=== PATIENT | female | born 1935 | race Caucasian/White ===

== ENCOUNTER 2016-11-01 11:54 | Inpatient (IN) | payer MEDICARE, OTHER ==
--- NOTE | ~2016-11-01 | EHP ---
ER History and Physical [address] [address] NAME: EMELINA MURPHY : 35 STATUS : DIS IN PAT#: [id number] AGE: 81 ADM/REG DATE : 11/01/16 MR#: [id number] REPORT SERV DATE: 11/12/16 DICTATED BY: MARE AHN DATE: 11/12/16 REPORT STATUS : Draft TRANSCRIBED BY: MARYELLEN DATE: 11/12/16 ADDENDUM: CHIEF COMPLAINT: Fever. HISTORY: Ms. Murphy is an 81-year-old female, who presented with fever, cough, sore throat, and weakness and fatigue for two weeks. She has some associated nausea and vomiting as well as some dysuria and has been complaining of ongoing fever off and on for two weeks now. She is . She has a history of smoking. No alcohol use. She is retired, history of breast cancer. PAST MEDICAL HISTORY: As above. PHYSICAL EXAMINATION: GENERAL: No acute distress. HEENT: Eyes, extraocular muscles are intact. Dry mucous membranes. Oropharynx clear. RESPIRATORY: No increased work of breathing. LUNGS: Clear to auscultation bilaterally. ABDOMEN: Soft, nontender, positive bowel sounds. EXTREMITIES: No cyanosis, clubbing, or edema. NEUROLOGIC: Alert and oriented x3. No focal deficits. PSYCH: Calm and cooperative. CV: Regular rate and rhythm. No murmurs, rubs, or gallops. NECK: No lymphadenopathy. DATA REVIEW: White blood cells 6.3, hemoglobin hematocrit unremarkable. Chest x-ray shows left upper lobe pneumonia with some chronic lung changes. ASSESSMENT AND PLAN: Community-acquired pneumonia. We will admit to the hospital. Discussed this patient with Dr. Garzon, possibly some radiation pneumonitis, history of lung cancer. Antibiotics have been started here in the ER, and they are going to be continued as per prior discussion. NIGHAT/MARYELLEN Mare Ahn DO / [id number] CC: MD José Oviedo M.D.
--- NOTE | ~2016-11-01 | HP ---
History And Physical [id number] [place]. [address] NAME: EMELINA DAILY : 35 STATUS : ADM IN [facility]#: [id number] AGE: 81 ADM/REG DATE : 11/01/16 MR#: [id number] REPORT SERV DATE: 11/01/16 DICTATED BY: LEIDY GUSTAFSON DATE: 11/01/16 REPORT STATUS : Draft TRANSCRIBED BY: MODL DATE: 11/01/16 DATE OF ADMISSION: 11/01/2016 CHIEF COMPLAINT: Fever. 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 She is status post lobectomy and a 21 day course of radiation therapy which concluded on 09/24/2016. The patient reports that upon completion of radiation therapy couple of days later started to develop intermittent fevers and chills. The patient states that she was evaluated by her primary care physician and was started on oral antibiotics. She reports compliance with medication, however, her symptoms have persisted despite antibiotic therapy. Therefore, the patient decided to present to the emergency room for further evaluation. Upon presentation to the emergency room, preliminary workup was essentially negative except for a mildly elevated creatinine. Chest x-ray was obtained which noted a left upper lobe pneumonia superimposed upon underlying chronic lung disease. The patient was started on Rocephin, and Hospitalist Service was called to admit. Upon my evaluation of the patient, the patient corroborated the above story. She denied any decreased p.o. intake or any sick contacts. She states otherwise she has been doing relatively well. REVIEW OF SYSTEMS: A 14-point review of system was performed. All systems were negative except as noted in the HPI. PAST MEDICAL HISTORY: Significant for: 1. Hypertension. 2. Hyperlipidemia. 3. History of right breast cancer, about 19 years ago was treated with chemotherapy and radiation. Also left breast invasive pleomorphic lobular carcinoma diagnosed in July of 2006. The patient is status post radiation therapy. PAST SURGICAL HISTORY: Significant for lumpectomy. FAMILY HISTORY: Noncontributory. SOCIAL HISTORY: The patient currently lives at home with her . Denies illicit drug use. The patient also denies alcohol use, reports 20 pack year smoking history. She states that she is currently smoking, smokes about 5 cigarettes per day. ALLERGIES: THE PATIENT IS ALLERGIC TO PENICILLIN. PHYSICAL EXAMINATION: VITAL SIGNS: On presentation, blood pressure 137/67 with a pulse of 102, respiration 19, O2 saturation 90% on room air. History And Physical [address] [address] NAME: EMELINA DAILY : 35 STATUS : ADM IN [facility]#: [id number] AGE: 81 ADM/REG DATE : 11/01/16 MR#: [id number] REPORT SERV DATE: 11/01/16 DICTATED BY: LEIDY GUSTAFSON DATE: 11/01/16 REPORT STATUS : Draft TRANSCRIBED BY: MARYELLEN DATE: 11/01/16 GENERAL: The patient lying in bed, in no acute distress. Appears stated age. Speaking in full sentences with normal respiratory effort. HEENT: Normocephalic and atraumatic. Extraocular motors intact. Moist oral mucosa. Pupils round and reactive to light and accommodation. NECK: Trachea is midline and symmetric. No JVD noted. No thyromegaly present. CHEST: Nontender to palpation. Equal chest expansion noted. CARDIOVASCULAR: Regular rate and rhythm. S1, S2. No murmurs, rubs, or gallops. LUNGS: Clear to auscultation bilaterally. ABDOMEN: Positive bowel sounds. Nontender. Nondistended. No masses palpated. EXTREMITIES: No cyanosis, no clubbing, no edema. NEUROLOGIC: Alert and oriented x3. No focal deficits appreciated. LABORATORY DATA: WBC 6.3, hemoglobin 13.5, hematocrit 39.5 with an MCV of 87.6, platelets 249, sodium 141, potassium 3.7, chloride 101, bicarb 30, BUN 14, creatinine 1.08 with a GFR of 48, glucose 114. IMAGING: Chest PA and lateral impression: Left upper lobe pneumonia superimposed upon underlying chronic lung disease. ASSESSMENT AND PLAN: 1. Community-acquired pneumonia. Plan: We will start patient on Rocephin and azithromycin. Obtain blood cultures x2. Check Legionella urine antigen. 2. Radiation pneumonitis. Based on history obtained, we will empirically start the patient on prednisone 60 mg p.o. daily. Obtain chest CT with contrast and monitor. 3. Invasive pleomorphic lobular carcinoma status post radiation therapy. We will obtain chest CT to monitor. 4. Fever likely secondary to community-acquired pneumonia. Management as above. 5. Hypertension, controlled. Continue home medications. 6. Hyperlipidemia. We will continue statin therapy. 7. Hypoxia. The patient upon present presentation, O2 saturation was at 90%, the patient responded appropriately to supplemental oxygen. We will continue. 8. Code status. The patient wishes to remain full code. 9. DVT prophylaxis. Subcu heparin. BRITNEY/MODL Leidy Gustafson MD / [id number] CC: MD José Oviedo M.D.
--- NOTE | ~2016-11-01 | DS ---
Discharge Summary [facility] [address] [place]. 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 For further details, please refer to H and P dictated by me on 11/01/2016. HOSPITAL COURSE: Upon presentation to the hospital, the patient was admitted on the Hospitalist Service. Given her recent history of cancer, status post radiation therapy, there was a high concern for radiation pneumonitis since the patient was refractory to antibiotic therapy. On presentation, her imaging was concerning of pneumonia with underlying lung injury concerning for malignancy versus radiation injury. Given this finding, the patient was placed on prednisone and also started on IV Rocephin and azithromycin for community-acquired pneumonia. Upon initiation of therapy, the patient quickly responded to therapy with resolution of her fever. The patient was kept in-house and progressively monitored. She has done very well. Has remained hemodynamically stable. Has been afebrile for over greater than 48 hours. Given significant improvement and hemodynamic stability, the patient will be discharged home today. While in-house, a CT of the chest without contrast was obtained, which was significant for postradiation fibrosis in the lingula and upper left lobe. Again, as stated above, the patient has remained hemodynamically stable and will be discharged home today. DISCHARGE DIAGNOSES: 1. Possible radiation pneumonitis. 2. Community-acquired pneumonia. 3. Hypertension. 4. Hyperlipidemia. 5. Fever. 6. History of invasive pleomorphic lobular carcinoma. DISCHARGE PHYSICAL EXAMINATION: VITAL SIGNS: Blood pressure 110/59 with a pulse of 82, respirations 18, O2 saturation 92% on room air. GENERAL: The patient is lying in bed, in no acute distress. Appears stated age. Speaking in full sentences. HEENT: Normocephalic, atraumatic. Extraocular motors intact. Moist oral mucosa. Pupils round and reactive to light and accommodation. NECK: Trachea midline and symmetric. No JVD noted. No thyromegaly present. No lymph node noted. CHEST: Nontender to palpation. CARDIOVASCULAR: Regular rate and rhythm. S1, S2. No murmurs, rubs, or gallops. LUNGS: Clear to auscultation bilaterally. No added breath sounds. No wheezing, rales, or rhonchi. Equal chest expansion. Normal respiratory effort. ABDOMEN: Positive bowel sounds. Nontender. Nondistended. No masses palpated. Discharge Summary [address] [place]. [address] NAME: EMELINA DAILY : 35 STATUS : DIS IN [facility]#: [id number] AGE: 81 ADM/REG DATE : 11/01/16 MR#: [id number] REPORT SERV DATE: 11/04/16 DICTATED BY: LEIDY GUSTAFSON DATE: 11/03/16 REPORT STATUS : Draft TRANSCRIBED BY: MARYELLEN DATE: 11/03/16 EXTREMITIES: No cyanosis, no clubbing, no edema. NEUROLOGIC: Alert and oriented x3. No focal deficits appreciated. DISCHARGE MEDICATIONS: Amlodipine 10 mg p.o. daily, aspirin 81 mg p.o. daily, Caltrate 600 mg p.o. twice a day, cholecalciferol 2000 units p.o. at bedtime, lovastatin 20 mg p.o. at bedtime, multivitamin one tab p.o. daily, Ocuvite one tab p.o. daily, [place]-3 fatty acid 1200 mg p.o. twice a day, Ambien 10 mg p.o. at bedtime, 500 mg p.o. at bedtime, ProAir two puff inhalations daily p.r.n., Levaquin 750 mg p.o. daily five tabs, prednisone 40 mg p.o. daily for five days. IMAGIN. CT chest without contrast, impression:. a. COPD. b. 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 There is some additional scarring in the right middle lobe. c. Minimal atelectasis of the right lung base. There are no significant acute lung infiltrates. 2. No lung masses or adenopathy. 3. Extensive calcified atherosclerotic disease. 4. Small hiatal hernia. DISPOSITION: The patient will be discharged home to follow up with her primary care physician. ACTIVITY: As tolerated. DIET: Regular. Greater than 30 minutes was spent providing counseling, dictating note, medication reconciliation, and coordinating discharge. BRITNEY/MARYELLEN Leidy Gustafson MD / [id number] CC: MD José Oviedo M.D.
[~2016-11-01 11:54] MED LIST: AMB10 PO; CALTRA600D PO; FISH-EPA1000 MG PO; HALF81 PO; MEVACOR PO; MULTIPLE VIT PO; NORV10 PO; PRESERVISION A1 EAC1 PO; PROAIR HFA INH; TUMERIC PO; VITAMIN D31000 UNIT PO
[2016-11-01 12:28] LABS: BASOPHILS 0.3 %; BASOPHILS ABSOLUTE 0.02 10/3/uL (0.0-0.16); EOSINOPHILS 1.9 %; EOSINOPHILS ABSOLUTE 0.12 10/3/uL (0.0-0.53); ER CBC TAT 0 Hrs 07 Mins; HEMATOCRIT 39.5 % (36.0-48.0); HEMOGLOBIN 13.5 g/dL (12.0-16.0); IMMATURE GRANULOCYTES 0.3 %; IMMATURE GRANULOCYTES ABSOLUTE 0.02 10/3/uL (0.0-0.11); LYMPHOCYTES 3.6 %; LYMPHOCYTES ABSOLUTE 0.23 10/3/uL (0.67-4.30); MEAN CORPUS HGB CONC 34.2 g/dL (32.0-36.0); MEAN CORPUSCULAR HEMOGLOB 29.9 pg (26.0-34.0); MEAN CORPUSCULAR VOLUME 87.6 fL (80-100); MEAN PLATELET VOLUME 8.8 fL (9.2-13.0); MONOCYTES 8.4 %; MONOCYTES ABSOLUTE 0.53 10/3/uL (0.21-1.20); NEUTROPHILS 85.5 %; NEUTROPHILS ABSOLUTE 5.41 10/3/uL (2.02-8.40); PLATELET COUNT 249 10/3/uL (150-400); RBC DISTRIBUTION WIDTH 13.1 % (12.0-16.0); RED CELL COUNT 4.51 10/6/uL (4.0-5.6); WHITE BLOOD CELLS 6.3 10/3/uL (4.5-10.5)
[2016-11-01 12:29] LABS: MANUAL DIFF NO %
[2016-11-01 12:43] LABS: A/G RATIO 0.6 (0.7-1.9); ALBUMIN 2.6 G/DL (3.5-5.0); ALKALINE PHOSPHATASE 62 U/L (45-117); BUN (BLOOD UREA NITROGEN) 14 MG/DL (6-23); CALCIUM, SERUM 9.5 MG/DL (8.5-10.4); CHLORIDE, SERUM 101 MMOL/L (96-112); CO2 (CARBON DIOXIDE) 30 MMOL/L (24-34); CREATININE 1.08 MG/DL (0.55-1.02); GFR AFRICAN AMERICAN 56 ML/MIN (>=60); GFR NON AFRICAN AMERICAN 48 ML/MIN (>=60); GLOBULIN 4.4 G/DL (2.5-4.1); GLUCOSE, SERUM 114 MG/DL (60-99); POTASSIUM, SERUM 3.7 MMOL/L (3.5-5.3); SGOT(AST) 24 U/L (5-40); SGPT(ALT) 24 U/L (5-65); SODIUM, SERUM 141 MMOL/L (135-148); TOTAL BILIRUBIN 0.4 MG/DL (0-1.2)
[2016-11-01 13:07] LABS: ASCORBIC ACID (UR NOT ORDER) NEG (NEG); BILIRUBIN, URINE NEGATIVE (NEG); ER URINALYSIS TAT 0 Hrs 10 Mins; KETONE, URINE NEGATIVE (NEG); LEUKOCYTE ESTERASE(NOT OR SMALL (NEG); NITRITE (URINE) NEG (NEG); WBC (NOT ORDERED) (RFLEX) 6 (0-5)
[2016-11-01] MEDS ORDERED: MULTIVITAMI1 PO (13:08)
[2016-11-01] MEDS ORDERED: CALTRA600D PO (13:09)
[2016-11-01] MEDS ORDERED: NORV10 PO (13:09)
[2016-11-01] MEDS ORDERED: ASAB PO (13:10)
[2016-11-01] MEDS ORDERED: FISH OIL1200 MG PO (13:10)
[2016-11-01] MEDS ORDERED: MEVACOR PO (13:10)
[2016-11-01] MEDS ORDERED: AMB10 PO (13:10)
[2016-11-01] MEDS ORDERED: TUMERIC CAPSULE PO (13:11)
[2016-11-01] MEDS ORDERED: VITAMIN D31000 UNIT PO (13:11)
[2016-11-01] MEDS ORDERED: OCUVITE PO (13:15)
[2016-11-01 13:16] LABS: PROCALCITONIN 0.05 ng/mL (<0.5)
[2016-11-01] MEDS ORDERED: PROAIR HFA INH (13:16)
[2016-11-01 13:18] LABS: LACTATE 1.1 MMOL/L (0.3-2.4)
[2016-11-01] MEDS ORDERED: LEVAQUIN750 MG PO (13:18)
[2016-11-01] MEDS ORDERED: TEARS PURE OPH (13:18)
[2016-11-02 06:34] LABS: BASOPHILS 0 %; EOSINOPHILS 0.3 %; EOSINOPHILS ABSOLUTE 0.01 10/3/uL (0.0-0.53); HEMOGLOBIN 11.8 g/dL (12.0-16.0); IMMATURE GRANULOCYTES 0.3 %; IMMATURE GRANULOCYTES ABSOLUTE 0.01 10/3/uL (0.0-0.11); LYMPHOCYTES 11.7 %; LYMPHOCYTES ABSOLUTE 0.46 10/3/uL (0.67-4.30); MEAN CORPUS HGB CONC 33.5 g/dL (32.0-36.0); MEAN CORPUSCULAR HEMOGLOB 29.5 pg (26.0-34.0); MEAN PLATELET VOLUME 8.7 fL (9.2-13.0); MONOCYTES 3.3 %; MONOCYTES ABSOLUTE 0.13 10/3/uL (0.21-1.20); NEUTROPHILS 84.4 %; NEUTROPHILS ABSOLUTE 3.31 10/3/uL (2.02-8.40); PLATELET COUNT 250 10/3/uL (150-400); RBC DISTRIBUTION WIDTH 12.9 % (12.0-16.0); WHITE BLOOD CELLS 3.9 10/3/uL (4.5-10.5)
[2016-11-02 06:35] LABS: HEMATOCRIT 35.2 % (36.0-48.0); MANUAL DIFF NO %
[2016-11-02 06:47] LABS: A/G RATIO 0.5 (0.7-1.9); ALBUMIN 2.2 G/DL (3.5-5.0); ALKALINE PHOSPHATASE 56 U/L (45-117); BUN (BLOOD UREA NITROGEN) 18 MG/DL (6-23); CALCIUM, SERUM 9.4 MG/DL (8.5-10.4); CHLORIDE, SERUM 104 MMOL/L (96-112); CO2 (CARBON DIOXIDE) 28 MMOL/L (24-34); CREATININE 0.96 MG/DL (0.55-1.02); GFR AFRICAN AMERICAN 64 ML/MIN (>=60); GFR NON AFRICAN AMERICAN 55 ML/MIN (>=60); GLOBULIN 4.2 G/DL (2.5-4.1); GLUCOSE, SERUM 171 MG/DL (60-99); POTASSIUM, SERUM 4.4 MMOL/L (3.5-5.3); SGOT(AST) 17 U/L (5-40); SGPT(ALT) 19 U/L (5-65); SODIUM, SERUM 138 MMOL/L (135-148); TOTAL BILIRUBIN 0.3 MG/DL (0-1.2); TOTAL PROTEIN 6.4 G/DL (6.0-8.5)
[2016-11-03 04:28] LABS: BASOPHILS 0 %; EOSINOPHILS 0 %; HEMOGLOBIN 11.3 g/dL (12.0-16.0); IMMATURE GRANULOCYTES 0.1 %; IMMATURE GRANULOCYTES ABSOLUTE 0.01 10/3/uL (0.0-0.11); LYMPHOCYTES 7.9 %; LYMPHOCYTES ABSOLUTE 0.63 10/3/uL (0.67-4.30); MEAN CORPUS HGB CONC 34.2 g/dL (32.0-36.0); MEAN CORPUSCULAR HEMOGLOB 29.6 pg (26.0-34.0); MEAN CORPUSCULAR VOLUME 86.4 fL (80-100); MEAN PLATELET VOLUME 8.9 fL (9.2-13.0); MONOCYTES 6.6 %; MONOCYTES ABSOLUTE 0.53 10/3/uL (0.21-1.20); NEUTROPHILS 85.4 %; NEUTROPHILS ABSOLUTE 6.84 10/3/uL (2.02-8.40); PLATELET COUNT 289 10/3/uL (150-400); RBC DISTRIBUTION WIDTH 13.1 % (12.0-16.0); RED CELL COUNT 3.82 10/6/uL (4.0-5.6)
[2016-11-03 04:30] LABS: MANUAL DIFF NO %
[2016-11-03 04:43] LABS: A/G RATIO 0.6 (0.7-1.9); ALBUMIN 2.3 G/DL (3.5-5.0); ALKALINE PHOSPHATASE 53 U/L (45-117); CALCIUM, SERUM 9.9 MG/DL (8.5-10.4); CHLORIDE, SERUM 105 MMOL/L (96-112); CO2 (CARBON DIOXIDE) 27 MMOL/L (24-34); GFR AFRICAN AMERICAN 70 ML/MIN (>=60); GFR NON AFRICAN AMERICAN 60 ML/MIN (>=60); GLUCOSE, SERUM 172 MG/DL (60-99); POTASSIUM, SERUM 4.2 MMOL/L (3.5-5.3); SGOT(AST) 17 U/L (5-40); SGPT(ALT) 19 U/L (5-65); SODIUM, SERUM 139 MMOL/L (135-148); TOTAL BILIRUBIN 0.2 MG/DL (0-1.2); TOTAL PROTEIN 6.3 G/DL (6.0-8.5)
[2016-11-03 04:44] LABS: BUN (BLOOD UREA NITROGEN) 28 MG/DL (6-23)
[2016-11-03] MEDS ORDERED: P20 PO (11:21)
== END 2016-11-03 12:35 | disposition home or self-care (01) | DRG 190 ==
LOC: ER 11:54 → 7NO 14:13
PROVIDERS: Hospitalist; Internal Medicine
DX: J44.0 Chronic obstructive pulmonary disease with (acute) lower respiratory infection (principal); J18.9 Pneumonia, unspecified organism; J70.0 Acute pulmonary manifestations due to radiation; I10 Essential (primary) hypertension; Y84.2 Radiological procedure and radiotherapy as the cause of abnormal reaction of the patient, or of later complication, without mention of misadventure at the time of the procedure; R09.02 Hypoxemia; E78.5 Hyperlipidemia, unspecified; K44.9 Diaphragmatic hernia without obstruction or gangrene; F17.210 Nicotine dependence, cigarettes, uncomplicated; Z92.21 Personal history of antineoplastic chemotherapy; Z88.0 Allergy status to penicillin; Z85.3 Personal history of malignant neoplasm of breast
CPT/HCPCS: 71020; 71250; 80053; 81001; 83605; 84145; 85025; 87040; 87086; 87449; 93005; 94640; 96374; 99285; A9270-GY; J0456; J0696